=== PATIENT | male | born 1960 | race Caucasian/White ===

== ENCOUNTER → 2021-12-05 15:09 | Outpatient (BNVA) | payer OTHER, SELFPAY | PROVIDERS: Family Provider Family Medicine; PCP Family Medicine; Visit Provider Nurse Practitioner Family | DX: R30.0 Dysuria (principal); N12 Tubulo-interstitial nephritis, not specified as acute or chronic; M79.674 Pain in right toe(s) | CPT/HCPCS: 81000 ==

== ENCOUNTER 2021-12-08 16:59 | Emergency (ER) | payer OTHER, SELFPAY ==
[2021-12-08 17:06] VITALS: PULSE 74; RESP 18; TEMP 36.6; O2SAT 90; BMI 47.5
--- NOTE | 2021-12-08 17:51 | ED_ITS ---
HPI - Weakness General: Chief complaint: Weakness Stated complaint: sent for antibiotic IV Time Seen by Provider: 12/08/21 17:47 Source: patient Mode of arrival: ambulatory Limitations: no limitations History of Present Illness: This patient is in the emergency department because he thinks he needs IV antibiotics. He apparently was diagnosed as having a UTI on Tuesday and eventually was transferred to [place] at [facility]. He apparently was unsatisfied at that facility and left there AGAINST MEDICAL ADVICE. He states that since that time he has had no fevers, nominal nausea, vomiting, diarrhea. He states he has been urinating relatively normally and states he feels better but wonders if he needs to have any more IV antibiotics. 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 He states he is taking all his medications as prescribed including an antibiotic but he cannot tell me the name of that antibiotic and does not have his medications with him. Associated symptoms: Denies chest pain, chills, dysuria, easy bruising, fever(s), headache(s), nausea or vomiting Review of Systems Const: Denies: fever(s) or chills Eyes: Denies: change in vision ENMT: Denies: throat pain, odynophagia, nasal discharge or nasal congestion Card: Denies: chest pain, palpitations or irregular heart rhythm Resp: Denies: dyspnea, productive cough or non-productive cough GI: Denies: abdominal pain, nausea, vomiting or diarrhea : Denies: flank pain, difficulty urinating, dysuria or urinary frequency Musc: Denies: neck pain, back pain or extremity pain Skin/Breast: Denies: rash Neuro: Denies: headache(s), numbness in extremities or weakness in extremities Psych: Denies: anxiety Endo: Denies: polyuria, polydipsia or tired all the time Tulio/Lymph: Denies: easy bruising or easy bleeding [facility] ED PFSH: Social History Smoking and tobacco status: current some day smoker Physical Exam Narrative: EXAM NARRATIVE: Patient is obese gentleman who wears dark glasses while in the emergency department. Answers questions readily and in a goal-directed fashion. Const: COMMON NORMALS: patient oriented x3 and alert GENERAL APPEARANCE: cooperative and comfortable NUTRITIONAL APPEARANCE: overweight HENMT: COMMON NORMALS: normocephalic, atraumatic, Normal nasal mucous membranes and turbinates present, moist oral mucous membranes and oropharynx normal HEAD & SCALP: normocephalic and atraumatic FACE & SINUS: normal facial exam NOSE: Normal nasal mucous membranes and turbinates present Eye: COMMON NORMALS: Equal, round and reactive pupils present, EOMs intact bilaterally and conjunctivae normal CONJUNCTIVA: Yes conjunctivae normal PUPIL: Yes Equal, round and reactive pupils present Neck/C-Spine: COMMON NORMALS: full ROM and no lymphadenopathy Chest: COMMONS NORMALS: normal inspection of the chest Resp: COMMON NORMALS: normal respiratory effort, No retractions, No use of accessory muscles and clear to auscultation bilaterally AUSCULTATION: clear to auscultation bilaterally Cardio: COMMON NORMALS: regular rate, regular rhythm, No murmurs present (Cardio) and Peripheral pulses 2+ throughout RATE: regular rate RHYTHM: regular rhythm PERIPHERAL PULSES: Peripheral pulses 2+ throughout GI: COMMON NORMALS: Normal to inspection, nondistended, normoactive bowel sounds present, Soft to palpation, non-tender and no masses PALPATION: Yes Soft to palpation : COMMON NORMALS: Yes no CVA tenderness BLADDER/KIDNEY EXAM: Yes no CVA tenderness Back/Pelvis: COMMON NORMALS: no CVA tenderness, thoracic and lumbar spine n ormal to inspection and no thoracic nor lumbar tenderness Extremity: COMMON NORMALS: full ROM, capillary refill normal and no calf tenderness NARRATIVE EXTREMITY EXAM: He has some distal brawny discoloration of the skin with some 1+ edema anterior lower extremities bilaterally. No erythema. No ascending lymphangitis. Neuro: COMMON NORMALS: patient oriented x3, moves all extremities, no focal motor deficits and no sensory deficits noted SENSORIUM/ORIENTATION: Yes alert SPEECH: speech normal GAIT: Yes Normal gait present Psych: COMMON NORMALS: mental status grossly normal Skin: COMMON NORMALS: turgor normal GENERAL SKIN EXAM: turgor normal, no ecchymo and no erythema Course Reevaluation(s): Reevaluation #1: Patient's urinalysis remains abnormal in the emergency department. While the patient looks clinically stable and alert with unremarkable vital signs we will give him a liter of fluids in addition to 2 g Rocephin and follow his response. Time: 19:50 Reevaluation #2: Remains stable IV antibiotics infused IV fluids are almost completely infused. Patient will be stable to be discharged to continue his current regimen. Outpatient follow-up with his primary care doctor and/or return to the emergency department for any new persistent or worsening symptoms. Time: 20:59 Vital Signs: Vital signs: Vital Signs Temperature 97.9 F 12/08/21 17:06 Pulse Rate 74 12/08/21 17:06 Respiratory Rate 18 12/08/21 17:06 Pulse Oximetry 90 12/08/21 17:06 Oxygen Delivery Me thod 12/08/21 17:06 MDM - Weakness Medical Decision Making This patient presented to the emergency department because of concerns about ongoing urinary tract infection issues. Apparently the patient had somewhat of a uncertain course but made his way to [facility] that facility AMA continued on oral antibiotics was directed to our emergency department for a dose of IV antibiotics allegedly. Patient clinically stable without any evidence at this time clinically to suggest sepsis or other overwhelming or con cerning infection and certainly did not display any focal or global weakness on evaluation.. No additional ancillary testing was warranted at this time given his current clinical picture. He still continues to have a abnormal urinalysis this evening. He was given IV fluids as well as IV Rocephin and is clinically stable and does not at this point time necessitate continued observation and or admission to the hospital. He is advised to continue all his usual medications and follow-up with his regular physician in the next 48-72 hours or return to this emergency department at any time. Medical Records I reviewed the patient's medical records. Lab Data I reviewed the patient's lab results. Laboratory Results Urine Color Yellow (Yellow) 12/08/21 18:30 Urine Appearance Cloudy (CLEAR) A 12/08/21 18:30 Urine pH 5 (5-7) 12/08/21 18:30 Ur Specific [place] 1.020 (1.005-1.030) 12/08/21 18:30 Urine Protein Neg (Negative) 12/08/21 18:30 Urine Glucose (UA) Norm (Normal) 12/08/21 18:30 Urine Ketones Negative (Negative) 12/08/21 18:30 Urine Blood 3+ (Negative) H 12/08/21 18:30 Urine Nitrate Negative (Negative) 12/08/21 18:30 Urine Bilirubin Neg (Negative) 12/08/21 18:30 Urine Urobilinogen Norm mg/dL (Negative) 12/08/21 18:30 Ur Leukocyte Esterase 2+ (Negative) H 12/08/21 18:30 Urine RBC 0-4 /hpf (0-2) H 12/08/21 18:30 Urine WBC 5-10 /hpf (0-5) H 12/08/21 18:30 Ur Squamous Epith Cells 10-15 /hpf (0-5) H 12/08/21 18:30 Amorphous Sediment Not Reportable 12/08/21 18:30 Urine Bacteria 2+ /hpf (NONE) H 12/08/21 18:30 Urine Yeast 1+ /hpf H 12/08/21 18:30 Discharge Plan Discharge Patient Disposition: Home Clinical Impression: Urinary tract infection Condition: Stable Prescriptions: No Action Entresto 49-51 mg tablet 1 tab PO BID metoprolol tartrate 50 mg tablet 25 mg PO DAILY bumetanide 2 mg tablet 2 mg PO DAILY cyclobenzaprine 5 mg tablet 5 mg PO TID PRN oxycodone-acetaminophen 5-325 mg tablet 1 tab PO Q8H PRN omeprazole 40 mg capsule,delayed release(DR/EC) 40 mg PO DAILY pregabalin 75 mg capsule 75 mg PO DAILY spironolactone 25 mg tablet 25 mg PO DAILY potassium chloride 10 mEq capsule, extended release 10 meq PO DAILY sulfamethoxazole-trimethoprim [Bactrim DS] 800-160 mg tablet 1 tab PO BID 7 Days Qty: 14 0RF Discharge Orders: Discharge ED (Routine); Ordered 12/08/21 Ordered By: Moises Watkins Referrals: Naomi Montes De Oca DO [Primary Care Provider] - 4-7 days (Follow-up on UTI) Discharge Diet: Usual diet Discharge Activity: Increase activity as tolerated Patient Instructions: Opioid Safety, Pain Management Activity Restrictions/Additional Instructions: Continue all your usual medications to include the previously prescribed oral an tibiotics. Make sure you are drinking at least 2 quarts of fluid daily. Should you develop worsening symptoms such as high fever nausea vomiting or other concerning symptoms at any time return to this or the nearest emergency department otherwise follow-up with your regular doctor in the next 4 to 5 days. Coding Level of Care Code ED Head Cook for Daisy Fwd Exam Comprehensive
[2021-12-08 19:09] LABS: Glucose Urine UA Norm (Normal); Protein Urine Neg (Negative); Urine Appearance Cloudy (CLEAR); Urine Color Yellow (Yellow); pH Urine 5 (5-7)
[2021-12-08 19:10] LABS: Add Urine Culture? Yes; Add Urine Microscopic? YES; Bacteria Urine 2+ /hpf; Bilirubin Urine Neg (Negative); Blood Urine 3+ (Negative); Ketones Urine Negative (Negative); Leukocyte Esterase Urine 2+ (Negative); Nitrate Urine Negative (Negative); RBC Urine 0-4 /hpf (0-2); Urobilinogen Urine Norm (Negative)
[2021-12-08] MEDS: sodium chloride 0.9% (plus) 50 ML 999 ML (20:48)
[2021-12-08] MEDS: cefTRIAXone 2,000 mg SDV 2000 MG (20:48)
--- NOTE | 2021-12-08 20:48 | PC.NURSE ---
Secondary to downtime, no meds crossing to MAR. 1000ml 9% NS bolus started per md order with 2000mg Rocephin in 50ml NS IV over 30 mins. This was verified with LISA Figueroa. Allergies, ID band, verified as well.
[2021-12-08] MEDS: sodium chloride 0.9% 1,000 ML 999 ML IV (21:11)
--- NOTE | 2021-12-08 21:11 | PC.NURSE ---
15mg Toradol IVP given per MD order. Verified with LISA Figueroa. Allergies, , ID band verified at bedside.
[2021-12-08 21:12] VITALS: BP 94/44; PULSE 65; RESP 18; O2SAT 96
--- NOTE | 2021-12-08 21:27 | ED_ITS ---
HPI - Weakness General: Chief complaint: Weakness Stated complaint: sent for antibiotic IV Time Seen by Provider: 12/08/21 17:47 Source: patient Mode of arrival: ambulatory Limitations: no limitations PFSH ED PFSH: Social History Smoking and tobacco status: current some day smoker Course Vital Signs: Vital signs: Vital Signs Temperature 97.9 F 12/08/21 17:06 Pulse Rate 65 12/08/21 21:12 Respiratory Rate 18 12/08/21 21:12 Blood Pressure 94/44 12/08/21 21:12 Pulse Oximetry 96 12/08/21 21:12 Oxygen Delivery Me thod 12/08/21 21:12 MDM - Weakness Lab Data Laboratory Results Urine Color Yellow (Yellow) 12/08/21 18:30 Urine Appearance Cloudy (CLEAR) A 12/08/21 18:30 Urine pH 5 (5-7) 12/08/21 18:30 Ur Specific [place] 1.020 (1.005-1.030) 12/08/21 18:30 Urine Protein Neg (Negative) 12/08/21 18:30 Urine Glucose (UA) Norm (Normal) 12/08/21 18:30 Urine Ketones Negative (Negative) 12/08/21 18:30 Urine Blood 3+ (Negative) H 12/08/21 18:30 Urine Nitrate Negative (Negative) 12/08/21 18:30 Urine Bilirubin Neg (Negative) 12/08/21 18:30 Urine Urobilinogen Norm mg/dL (Negative) 12/08/21 18:30 Ur Leukocyte Esterase 2+ (Negative) H 12/08/21 18:30 Urine RBC 0-4 /hpf (0-2) H 12/08/21 18:30 Urine WBC 5-10 /hpf (0-5) H 12/08/21 18:30 Ur Squamous Epith Cells 10-15 /hpf (0-5) H 12/08/21 18:30 Amorphous Sediment Not Reportable 12/08/21 18:30 Urine Bacteria 2+ /hpf (NONE) H 12/08/21 18:30 Urine Yeast 1+ /hpf H 12/08/21 18:30 Discharge Plan Discharge Patient Disposition: Home Clinical Impression: Urinary tract infection Condition: Stable Prescriptions: New doxycycline hyclate 100 mg tablet 100 mg PO BID 7 Days Qty: 14 0RF No Action Entresto 49-51 mg tablet 1 tab PO BID metoprolol tartrate 50 mg tablet 25 mg PO DAILY bumetanide 2 mg tablet 2 mg PO DAILY cyclobenzaprine 5 mg tablet 5 mg PO TID PRN oxycodone-acetaminophen 5-325 mg tablet 1 tab PO Q8H PRN omeprazole 40 mg capsule,delayed release(DR/EC) 40 mg PO DAILY pregabalin 75 mg capsule 75 mg PO DAILY spironolactone 25 mg tablet 25 mg PO DAILY potassium chloride 10 mEq capsule, extended release 10 meq PO DAILY sulfamethoxazole-trimethoprim [Bactrim DS] 800-160 mg tablet 1 tab PO BID 7 Days Qty: 14 0RF Discharge Orders: Discharge ED (Routine); Ordered 12/08/21 Ordered By: Moises Watkins Referrals: Naomi Montes De Oca DO [Primary Care Provider] - 4-7 days (Follow-up on UTI) Discharge Diet: Usual diet Discharge Activity: Increase activity as tolerated Patient Instructions: Opioid Safety, Pain Management Activity Restrictions/Additional Instructions: Continue all your usual medications to include the previously prescribed oral antibiotics. Make sure you are drinking at least 2 quarts of fluid daily. Should you develop worsening symptoms such as high fever nausea vomiting or other concerning symptoms at any time return to this or the nearest emergency department otherwise follow-up with your regular doctor in the next 4 to 5 days. Coding Level of Care Code ED Trust Operations Assistant for Daisy Stevenson
== END 2021-12-08 22:05 | disposition home or self-care (01) ==
PROVIDERS: Emergency Provider Emergency Medicine; PCP Family Medicine
DX: N39.0 Urinary tract infection, site not specified (principal); F17.210 Nicotine dependence, cigarettes, uncomplicated
CPT/HCPCS: 81001; 87086; 96365; 96375; 99284; J0696; J7030

== ENCOUNTER 2022-06-02 20:19 | Emergency (ER) | payer OTHER, SELFPAY ==
[2022-06-02] VITALS (8 sets, daily range): BP systolic 87–135; BP diastolic 50–73; PULSE 70–88; RESP 14–18; TEMP 36.9; O2SAT 94–99; BMI 40.6
--- NOTE | 2022-06-02 20:24 | ED_ITS ---
HPI - Extremity Injury (Lower) General: Chief Complaint: Fall Stated Complaint: LAC ON RIGHT LEG Time Seen by Provider: 06/02/22 20:24 History of Present Illness: 62-year-old gentleman nondiabetic presenting to the emergency room for right lower extremity injury. He reports that he slipped getting dressed hit his right lower extremity on the running board causing large laceration which was dressed by EMS. Patient reports severe pain worse with palpation and movement. He reports chronic hypotension. He is not on anticoagulation and nondiabetic. No other specific changes in health, exacerbating, or alleviating factors identified. Onset (ago): minute(s) Place: street/outdoors Severity: moderate Context: fall Other symptoms: none Review of Systems General: Reports: 10 or more systems reviewed and unremarkable except in HPI and below PFSH ED PFSH: Medical History (Updated 06/10/22 @ 18:43 by John Grace MD) No significant past medical history Surgical History (Updated 06/10/22 @ 18:43 by John Grace MD) No significant past surgical history Social History Smoking and tobacco status: current some day smoker Physical Exam 2 Const: COMMON NORMALS: alert GENERAL APPEARANCE: cooperative and well developed HENMT: COMMON NORMALS: normocephalic and atraumatic HEAD & SCALP: normocephalic and atraumatic Eye: COMMON NORMALS: conjunctivae normal CONJUNCTIVA: Yes conjunctivae normal SCLERA: sclerae normal Neck/C-Spine: COMMON NORMALS: supple GENERAL: Yes trachea midline Resp: COMMON NORMALS: clear to auscultation bilaterally EFFORT & INSPECTION: Yes able to speak in complete sentences AUSCULTATION: clear to auscultation bilaterally Cardio: COMMON NORMALS: regular rate and regular rhythm RATE: regular rate RHYTHM: regular rhythm GI: COMMON NORMALS: Soft to palpation PALPATION: Yes Soft to palpation and No Tenderness to palpation present (GI) Extremity: NARRATIVE EXTREMITY EXAM: Right anterior ceballos large irregular laceration. Overall roughly V-shaped with point facing inferiorly. approximately 8*16 cm. Primarily involving superficial avulsion of skin flaps with exposed fatty tissue however there is a deeper central area that avulses the fatty tissue. GENERAL: Yes normal exam except as noted and No edema Neuro: COMMON NORMALS: moves all extremities SENSORIUM/ORIENTATION: Yes alert and No Orientation impaired Psych: COMMON NORMALS: mental status grossly normal and Normal thought process present THOUGHT PROCESS: Normal thought process present Procedures Laceration Laceration 1: Site: lower extremity Side (If applicable): right Size (cm): 10 Description: flap, irregular and contaminated Depth: involves muscle layer Local Anesthetic: lidocaine 1% and with epi Amount of anesthesia used (mL): 8 Pre-repair: wound explored and irrigated extensively Procedural Sedation Indication: laceration repair ASA Class: II Preparation: cardiac rehab nurse applied, pulse oximeter, supplemental O2 applied, suction/airway equipment at bedside and IV secured Ketamine: IV Ketamine dose (mg): 250 Patient Tolerated Procedure: well and no complications Course Vital Signs: Vital signs: Vital Signs Temperature 98.5 F 06/02/22 20:30 Pulse Rate 88 06/02/22 23:15 Respiratory Rate 15 06/02/22 23:30 Blood Pressure 112/58 06/03/22 00:00 Pulse Oximetry 96 06/03/22 00:00 Oxygen Delivery Me thod Room Air 06/03/22 00:00 Oxygen Flow Rate 4 06/02/22 23:15 MDM - Extremity Injury (Lower) Medical Decision Making 62-year-old gentleman presenting with leg injury secondary to fall. Exam as above. Head to toe exam performed with only isolated injury identified right lower extremity. No indications for labs. X-rays negative for fracture. Patient given IV fluids and analgesia, Tdap updated. I attempted with expiration with local anesthesia however patient was not tolerating procedure despite IV analgesia as well. The more surface areas are minimal to subcutaneous infiltration of analgesia sufficient to properly clean wound. Discussed this with general surgery and wound care, patient's family request also discussed case with plastic surgery. Medication for emergent transfer or operative intervention at this time. Patient requires procedural sedation for adequate wound exploration and cleaning. He was consented. Procedural sedation performed and wound was thoroughly cleaned. In discussion with plastic surgery and wound care tissues likely not amenable to laceration repair with sutures. Recommended thorough cleaning and reapproximation of tissue as best as possible which was performed. Nonadherent dressing followed by 4 x 4's and loose compressive dressing applied. Patient covered from procedural sedation. Follow-up is complicated by patient's plan to travel out of state however I discussed thoroughly wound care and follow-up plan. The results of ED evaluation were discussed with the patient including prescriptions and/or symptomatic cares (if applicable) including appropriate and responsible use, followup plan, and return precautions. The patient verbalized understanding and felt safe for discharge. Medical Records I reviewed the patient's medical records. Lab Data I reviewed the patient's lab results. Radiology Impressions Tibia/Fibula X-Ray 06/02/22 20:35 IMPRESSION: No acute findings. Discharge Plan Discharge Patient Disposition: Home Clinical Impression: Fall, Injury of right lower extremity, Laceration Condition: Stable Prescriptions: New cephalexin 500 mg capsule 500 mg PO QID 10 Days Qty: 40 0RF oxycodone 5 mg tablet 5 mg PO Q4H PRN (Reason: pain) Qty: 20 0RF No Action Entresto 49-51 mg tablet 1 tab PO BID metoprolol tartrate 50 mg tablet 25 mg PO DAILY bumetanide 2 mg tablet 2 mg PO DAILY cyclobenzaprine 5 mg tablet 5 mg PO TID PRN oxycodone-acetaminophen 5-325 mg tablet 1 tab PO Q8H PRN omeprazole 40 mg capsule,delayed release(DR/EC) 40 mg PO DAILY pregabalin 75 mg capsule 75 mg PO DAILY spironolactone 25 mg tablet 25 mg PO DAILY potassium chloride 10 mEq capsule, extended release 10 meq PO DAILY sulfamethoxazole-trimethoprim [Bactrim DS] 800-160 mg tablet 1 tab PO BID 7 Days Qty: 14 0RF Discharge Orders: Discharge ED (Routine); Ordered 06/02/22 Ordered By: John Grace Referrals: Naomi Montes De Oca DO [Physician] - Discharge Diet: Usual diet Discharge Activity: Limit activity as instructed Patient Instructions: Laceration (ED), Acute Wound Care (ED), Opioid Safety Activity Restrictions/Additional Instructions: Thank you for visiting the emergency department. You were seen and evaluated for leg injury. You have a complex laceration which requires further outpatient management. I will prescribe antibiotics. Keep the dressing clean and dry. You may use [id number] medications such as acetaminophen and ibuprofen for pain however please do not exceed the daily recommended dosage as listed on the packaging and please keep in mind that many namebrand medications contain the same active ingredients. Please avoid these medications if previously instructed to do so by another physician due to other underlying medical condition. Elevate the extremity to decrease swelling. I recommend follow-up within the next 5 to 7 days. You should change the dressing in 2 days with the supplies given. You might either call a plastic surgeon or wound care with the local health system or independent facilities in [place] or you can follow-up with our wound care here. Our wound care team will contact you. You may also follow-up with Dr. Chan in [facility]. [facility] - . [place] [id number] [facility] [address] [place] [address] Call and let them know that I discussed her case with Dr. Chan for lisa sandoval. Return to an emergency department for fevers, uncontrolled pain, increased drainage or redness, any changes in sensation or ability to move, or anything else that you are concerned about and feel needs emergency department evaluation. Coding Level of Care Code ED Water Project Manager for Daisy Stevenson
--- NOTE | 2022-06-02 20:35 | XRR_ITS ---
PROCEDURE INFORMATION: Exam: XR Right Tibia and Fibula Exam date and time: 06/02/2022 8:41 PM Age: 62 years old Clinical indication: Pain; Lower leg; Right; Additional info: Fall, laceration TECHNIQUE: Imaging protocol: Radiologic exam of the right tibia and fibula. Views: 2 views. COMPARISON: No relevant prior studies available. FINDINGS: Bones/joints: Normal. Soft tissues: Normal. XR/XR tibia fibula RT 2V [id number] IMPRESSION: No acute findings.
[2022-06-02] MEDS: sodium chloride 0.9% 1,000 ML 999 ML IV (20:37)
[2022-06-02] MEDS: fentaNYL 50 mcg/mL INJ 2mL IVP (21:11)
[2022-06-02] MEDS: lidocaine-epi 1% 20 mL INJ INJECTION (22:03)
[2022-06-03] VITALS: BP 112/58; O2SAT 96
[2022-06-03] MEDS: ceFAZolin 2,000 MG in sodium chloride 0.9% (plus) 50 ML 100 MG IV (00:10)
[2022-06-03] MEDS: oxyCODONE 5 mg IR Tab/Cap 15 MG PO (00:10)
[2022-06-03] MEDS: tetanus-dipt-pertussis 0.5 mL SDV IM (00:10)
== END 2022-06-03 01:09 | disposition home or self-care (01) ==
PROVIDERS: Emergency Provider Emergency Medicine; PCP Family Medicine
DX: S81.811A Laceration without foreign body, right lower leg, initial encounter (principal); W01.118A Fall on same level from slipping, tripping and stumbling with subsequent striking against other sharp object, initial encounter
CPT/HCPCS: 73590; 90471; 90715; 96365; 96366; 96375; 99285; J0690; J3010; J7030